=== PATIENT | male | born 1995 | race Caucasian/White ===

== ENCOUNTER 2017-05-01 11:43 | Emergency (ER) | payer OTHER ==
[~2017-05-01] VITALS: Ht 170.2 cm; Wt 86.5 kg
[2017-05-01 11:57] VITALS: Ht 170.2 cm; Wt 86.5 kg
[2017-05-01] MEDS ORDERED: KETOROLAC 30 MG INJ IV STA (13:39)
[2017-05-01] MEDS ORDERED: SOD CHLORIDE 0.9% 1,000 ML IV STA (13:39)
[2017-05-01] MEDS ORDERED: METOCLOPRAMIDE 10 MG INJ IV STA (13:39)
[2017-05-01] MEDS ORDERED: DIPHENHYDRAMINE 50 MG INJ IV STA (13:39)
[2017-05-01 14:06] LABS: ADD SCAN DIFF NO
[2017-05-01 14:14] LABS: BASOPHIL # 0.1 10^3/ul (0.0-0.1); BASOPHILS % 0.8 % (0.0-2.0); EOSINOPHILS # 0.3 10^3/ul (0.0-0.5); EOSINOPHILS % 3.3 % (0.0-7.0); HEMATOCRIT 46.4 % (42.0-52.0); HEMOGLOBIN 15.8 g/dl (14.0-18.0); LYMPHOCYTES # 2.9 10^3/ul (0.8-2.9); LYMPHOCYTES % 32.2 % (15.0-51.0); MEAN CORPUSCULAR HEMOGLOBIN 30.6 pg (29.0-33.0); MEAN CORPUSCULAR HGB CONC 34.1 g/dl (32.0-37.0); MEAN CORPUSCULAR VOLUME 89.7 fl (82.0-101.0); MEAN PLATELET VOLUME 12.5 fl (7.4-10.4); MONOCYTES % 11.1 % (0.0-11.0); NEUTROPHIL # 4.8 10^3/ul (1.6-7.5); NEUTROPHILS % 52.4 % (39.0-77.0); PLATELET COUNT 191 10^3/UL (140-415); RED BLOOD COUNT 5.17 10^6/ul (4.70-6.10); WHITE BLOOD COUNT 9.1 10^3/ul (4.8-10.8)
[2017-05-01 14:26] LABS: CALCIUM 9.7 mg/dl (8.4-10.2); CREATININE 0.9 mg/dl (0.61-1.24); POTASSIUM 3.7 mmol/L (3.5-5.1)
[2017-05-01] MEDS ORDERED: NAPR-260 PO (14:59)
--- NOTE | 2017-05-01 15:03 | ERD ---
ER Documentation Chief Complaint Date/Time DATE: 05/01/17 TIME: 15:00 Chief Complaint PT with SHIELDS X 2 months , taking tylenol at home. HPI This is a 21-year-old male presents to the ER with intermittent headaches over the last 2 months. Patient states that he gets a headache about once a week. Headache is located on the left side of his head and is stabbing in nature. Headache is nonradiating. Headache can last anywhere from an hour to 3 hours. Patient denies any blurry vision, photophobia or eye pain. Patient denies any cough or cold symptoms. He denies any head trauma. He denies any nausea or vomiting. He denies any fevers or chills. Patient denies any neck pain or neck stiffness. ROS 12 point review of systems was done, all negative except per HPI. Medications Home Meds Active Scripts Naproxen* (Naprosyn*) 500 Mg Tablet, 500 MG PO BID Y for PAIN AND/OR INFLAMMATION, #30 TAB Prov:SALVADOR LAWTON 05/01/17 Allergies Allergies: Coded Allergies: No Known Allergy (Unverified , 05/01/17) PMhx/Soc Medical and Surgical Hx: pt denies Medical Hx, pt denies Surgical Hx Hx Alcohol Use: No Hx Substance Use: No Hx Tobacco Use: No Smoking Status: Never smoker Physical Exam Vitals Vital Signs Date Time Temp Pulse Resp B/P Pulse Ox O2 Delivery O2 Flow Rate FiO2 05/01/17 11:57 98.4 75 14 131/64 98 Physical Exam GENERAL: The patient is well developed and appropriate for usual state of health , in no apparent distress. HEENT: Atraumatic. Conjunctivae are pink. Pupils equal, round, and reactive to light. Extraocular muscles are grossly intact. Bilateral tympanic membranes are clear with no evidence of erythema, bulging or perforation. No sinus tenderness. NECK: C-spine is soft and supple. There is no cervical lymphadenopathy. CHEST: Clear to auscultation bilaterally. There are no rales, wheezes or rhonchi. HEART: Regular rate and rhythm. No murmurs, clicks, rubs or gallops. EXTREMITIES: Equal pulses bilaterally. There is no peripheral clubbing, cyanosis or edema. No focal swelling or erythema. Full range of motion. Grossly neurovascularly intact. NEURO: Alert and oriented. Cranial nerves II through XII are intact. Motor strength in all 4 extremities with 5/5 strength. Sensation grossly intact. Normal speech and gait. Negative Rhomberg. +2 DTRs. SKIN: There is no apparent rash or petechia. The skin is warm and dry. Result Diagram: 05/01/17 1400 05/01/17 1400 Results 24 hrs Laboratory Tests Test 05/01/17 14:00 White Blood Count 9.110^3/ul Red Blood Count 5.1710^6/ul Hemoglobin 15.8g/dl Hematocrit 46.4% Mean Corpuscular Volume 89.7fl Mean Corpuscular Hemoglobin 30.6pg Mean Corpuscular Hemoglobin Concent 34.1g/dl Red Cell Distribution Width 12.0% Platelet Count 24825^3/UL Mean Platelet Volume 12.5fl Neutrophils % 52.4% Lymphocytes % 32.2% Monocytes % 11.1% Eosinophils % 3.3% Basophils % 0.8% Nucleated Red Blood Cells % 0.0/100WBC Neutrophils # 4.810^3/ul Lymphocytes # 2.910^3/ul Monocytes # 1.010^3/ul Eosinophils # 0.310^3/ul Basophils # 0.110^3/ul Nucleated Red Blood Cells # 0.010^3/ul Sodium Level 139mmol/L Potassium Level 3.7mmol/L Chloride Level 101mmol/L Carbon Dioxide Level 27mmol/L Anion Gap 15 Blood Urea Nitrogen 24mg/dl Creatinine 0.90mg/dl Glucose Level 94mg/dl Calcium Level 9.7mg/dl Current Medications Medications (Trade) Dose Ordered Sig/Ian Route PRN Reason Start Time Stop Time Status Last Admin Dose Admin Sodium Chloride (NS) 1,000 ml @ 1,000 mls/hr Q1H STAT IV 05/01/17 13:39 05/01/17 14:38 DC 05/01/17 14:01 Metoclopramide HCl (Reglan) 10 mg ONCE STAT IV 05/01/17 13:39 05/01/17 13:41 DC 05/01/17 14:01 Ketorolac Tromethamine (Toradol) 30 mg ONCE STAT IV 05/01/17 13:39 05/01/17 13:41 DC 05/01/17 14:03 Diphenhydramine HCl (Benadryl) 25 mg ONCE STAT IV 05/01/17 13:39 05/01/17 13:41 DC 05/01/17 14:04 Procedures/MDM Differential Diagnosis includes but is not limited to; tension headache, migraine headache, cluster headache, sinus headache, nonspecific febrile headache, trigeminal neurologia, subdural hematoma, subarachnoid bleeding, meningitis, encephalitis. Patient is neurologically intact with no focal neurological deficits. At this time etiology of headaches is unknown, patient may be suffering from migraine headaches. I do not believe that CT scan is needed as patient's physical examination is benign. Patient has had these headaches for over 2 months I doubt acute intracranial pathology. Patient did not have any evidence of infection, electrolyte abnormalities, anemia. He is extremely well-appearing and felt significantly better after treatment in the ER. Patient is to follow-up with his primary care doctor within 1-2 days return to ER sooner if symptoms worsen. My medical decision making was shared with the patient understands and agrees with plan. Departure Diagnosis: Primary Impression: Headache Condition: Stable Patient Instructions: Self-Care for Headaches Additional Instructions: Call your primary care doctor TOMORROW for an appointment during the next 1-2 days.See the doctor sooner or return here if your condition worsens before your appointment time. SALVADOR LAWTON May 01, 2017 15:03
[2017-05-01 15:08] VITALS: BP 115/71; PULSE 71; RESP 20; TEMP 98.3
== END 2017-05-01 15:09 | disposition home or self-care (01) ==
LOC: FTE 11:43
DX: R51 Headache (principal)
CPT/HCPCS: 80048; 85025; 96374; 96375; J1200; J1885; J2765; J7030; Z7502